=== PATIENT | female | born 1960 | race Hispanic/Latino ===

== ENCOUNTER 2017-06-03 18:29 | Observation (INO) | payer BC ==
[2017-06-03 18:36] VITALS: BP 120/71; PULSE 94; RESP 20; TEMP 97.6; O2SAT 98
[2017-06-03] MEDS ORDERED: Iohexol 240 (50 ml) PO ONE (18:59)
[2017-06-03] MEDS ORDERED: Sodium Chloride 0.9% 1,000 ML IV STA (19:02)
[2017-06-03] MEDS ORDERED: Iohexol 240 (50 ml) ONE (19:20)
--- NOTE | 2017-06-03 19:20 | ED PDOC ---
HPI: Abdomen Time Seen by Provider: 06/03/17 18:38 Chief Complaint (Nursing): GI Problem Chief Complaint (Provider): Abdominal Pain History Per: Patient History/Exam Limitations: no limitations Onset/Duration Of Symptoms: Hrs (3) Current Symptoms Are (Timing): Still Present Additional Complaint(s): Janet Jeffery is a 57 y/o female, with a past medical history of Gastrointestinal Ulcers and Asthma, presenting to the ER on 06/03/2017 with complaints of a sudden onset of abdominal pain onset 16:00. Patient reports the pain, which is constant, is localized in the epigastric region that radiates to her chest. She states her abdominal pain is associated with intractable vomiting , that is described as non-bloody and non-bilious, as well as four episodes of watery diarrhea that she notes as dark but not black. She further says her presentation is associated with chills, sweats, shortness of breath, and light- headedness, but denies any hematochezia, urinary symptoms, recent travel, sick contacts, or antibiotic usage. Patient says she ate frozen pizza for lunch. Patient has been taking Omeprazole for her Ulcers. Of note, patient is also complaining of right leg pain onset four days. She states the pain was initially sharp but has improved upon arrival. Past Medical History Reviewed: Historical Data, Nursing Documentation, Vital Signs Vital Signs: Last Vital Signs Temp 97.6 F 06/03/17 18:34 Pulse 94 H 06/03/17 18:34 Resp 20 06/03/17 18:34 BP 120/71 06/03/17 18:34 Pulse Ox 98 06/03/17 22:37 - Medical History PMH: Asthma, Gastrointestinal Ulcer - Surgical History Other surgeries: Tubal Ligation - Family History Family History: States: Unknown Family Hx - Social History Current smoker - smoking cessation education provided: Yes Alcohol: Occasional Drugs: Denies - Home Medications Home Medications: Ambulatory Orders Medication Instructions Recorded Dicyclomine [Bentyl] 20 mg PO BID PRN #30 tab 06/03/17 Lidocaine 5% [Lidoderm] 1 ea TD DAILY PRN #30 patch 06/03/17 Ondansetron ODT [Zofran ODT] 1 odt PO Q6 PRN #30 odt 06/03/17 - Allergies Allergies/Adverse Reactions: Allergies Allergy/AdvReac Type Severity Reaction Status Date / Time No Known Allergies Allergy Verified 06/03/17 18:33 Review of Systems ROS Statement: Except As Marked, All Systems Reviewed And Found Negative Constitutional: Positive for: Chills, Sweats Cardiovascular: Positive for: Light Headedness Respiratory: Positive for: Shortness of Breath Gastrointestinal: Positive for: Vomiting, Abdominal Pain, Diarrhea. Negative for: Hematochezia Genitourinary Female: Negative for: Dysuria, Frequency, Incontinence Physical Exam - Reviewed Nursing Documentation Reviewed: Yes Vital Signs Reviewed: Yes - Physical Exam Appears: Positive for: Uncomfortable, In Acute Distress Head Exam: Positive for: ATRAUMATIC, NORMOCEPHALIC Skin: Positive for: Warm, Diaphoresis Eye Exam: Positive for: Normal appearance, EOMI, PERRL ENT: Positive for: Normal ENT Inspection, Pharynx Is (clear), Other (tacky mucuous membranes ) Neck: Positive for: Normal, Painless ROM, Supple Cardiovascular/Chest: Positive for: Regular Rate, Rhythm, Chest Non Tender, Tachycardia (w/ regular rhythm ). Negative for: Murmur Respiratory: Positive for: Normal Breath Sounds. Negative for: Wheezing, Respiratory Distress Gastrointestinal/Abdominal: Positive for: Normal Exam, Tenderness ((+) epigastric ttp ), Other ((-) McBurney's Point tenderness; (-) Colunga's Sign ). Negative for: Mass, Distended Extremity: Positive for: Normal ROM, Calf Tenderness (pinpoint tenderness at proximal medial calf. no palpable mass or cord; (+) Khang's sign). Negative for : Deformity, Swelling Neurologic/Psych: Positive for: Alert, Oriented, Mood/Affect (anxious affect ). Negative for: Motor/Sensory Deficits - Laboratory Results Result Diagrams: 06/03/17 19:11 06/03/17 19:11 - ECG ECG Rhythm: Positive for: Normal QRS, Normal ST Segment, Sinus Rhythm (@ 96 bpm) . Negative for: ST/T Changes O2 Sat by Pulse Oximetry: 98 Medical Decision Making Medical Decision Makin:38 Initial Impression- Abdominal Pain, Vomiting, and Diarrhea. Differential diagnosis includes but not limited to gastroenteritis, PUD, pancreatitis, hepatitis, and SBO Initial Plan- * CT Abd Pelvis PO & IV * EKG * CMP * Lactic Acid * LDH * Lipase * Magnesium * Phosphorus * Troponin * Urine Dip * CBC w/ differential * D-Dimer * PT * PTT * Morphine 2 mg IVP * Zofran 8 mg IV * Protonix 40 mg IVP * Blood Cx Placed on Observation for time intensive workup and need for serial abdominal exams. 2130 Pt reports feeling better d/pw IVF, Zofran, Morphine, Protonix. 22:15 CT Abdomen and Pelvis FINDINGS: Limitations: Motion artifact - mild. Lower thorax: Minimal atelectasis/scarring. ABDOMEN: Liver: Fatty infiltration. Gallbladder and bile ducts: No calcified stones. No ductal dilation. Pancreas: No ductal dilation. No mass. Spleen: No splenomegaly. Adrenals: No mass. Kidneys and ureters: Few too small to characterize lesions within kidneys. No hydronephrosis. Stomach and bowel: Fluid within small bowel. Fluid/loose stool within large bowel. Scattered diverticula within colon. No associated inflammatory stranding. No definite mural thickening. No obstruction. Appendix: Normal caliber. No inflammation. PELVIS: Bladder: Unremarkable. Reproductive: Lobulation of uterus which fundal mass. ABDOMEN and PELVIS: Intraperitoneal space: No significant fluid collection. No free air. Bones/joints: Degenerative changes of spine. No acute fracture. Soft tissues: Unremarkable. Vasculature: Mild atherosclerotic disease. No aneurysm. Lymph nodes: No pathologically enlarged lymph nodes. IMPRESSION: 1. Fluid/loose stool within bowel may suggest diarrhea illness. 2. Probable fibroid uterus. 3. Incidental/non-acute findings are described above. 22:18 Pt was re-evaluated. Pt reports improved condition after tx, tolerated ice chips and PO contrast fluid. Abdomen benign. Discussed findings of CT scan and now will now attempt PO challenge of clear fluids. US Venous Doppler has been ordered. Next re-eval will be performed pending US. EXAM: US Duplex Right Lower Extremity Veins CLINICAL HISTORY: 57 years old, female; Pain; Leg, lower; Right; Additional info: Leg pain elevated ddimer TECHNIQUE: Real-time ultrasound scan of the veins of the right lower extremity with color Doppler flow, spectral waveform analysis and compression. COMPARISON: No relevant prior studies available. FINDINGS: Deep veins: Normal color and spectral Doppler flow. Normal compressibility. No deep vein thrombosis from common femoral to popliteal vein. Superficial veins: No thrombosis. Soft tissues: No popliteal cyst. IMPRESSION: 1. No evidence of DVT within RIGHT lower extremity. 2. Incidental/non-acute findings are described above. Thank you for allowing us to participate in the care of your patient. Dictated and Authenticated by: Wayne Harrington MD 06/03/2017 11:00 PM Eastern Time ([place] & [place]) 2300 Pt tolerated PO. Eager to go home. Stable for discharge. DW pt findings and plan of care. Documented by Gurvinder Nath, acting as a scribe for Whitney Tomlin MD. All medical record entries made by the Scribe were at my direction and personally dictated by me. I have reviewed the chart and agree that the record accurately reflects my personal performance of the history, physical exam, medical decision making, and the department course for this patient. I have also personally directed, reviewed, and agree with the discharge instructions and disposition. Disposition - Clinical Impression Clinical Impression: Gastroenteritis, Strain of calf muscle Counseled Patient/Family Regarding: Studies Performed, Diagnosis, Need For Followup, Rx Given - Disposition Disposition Time: 19:00 Condition: IMPROVED
[2017-06-03] MEDS ORDERED: Sterile Water 10 ML IV ONE (19:21)
[2017-06-03 19:28] LABS: BASO # 0.1 K/uL (0.0-0.2); BASO % 0.4 % (0.0-2.0); EOS # 0.1 K/uL (0.0-0.7); EOS % 0.5 % (0.0-4.0); HEMOGLOBIN 15.5 g/dL (12.0-16.0); LYMPH # 1.6 K/uL (1.0-4.3); MEAN CELL VOLUME 91.9 fl (81.0-99.0); MEAN CORPUSCULAR HGB CONC 32.7 g/dL (33.0-37.0); MEAN PLATELET VOLUME 8.2 fl (7.2-11.7); MONO # 0.6 K/uL (0.0-0.8); MONO % 4.5 % (0.0-10.0); NEUT # 11.2 K/uL (1.8-7.0); NEUT % 82.6 % (50.0-75.0); NRBC % 0.1 % (0.0-0.0); RBC 5.15 Mil/uL (3.80-5.20); RED CELL DISTRIBUTION WIDTH 14.7 % (11.5-14.5); WHITE BLOOD COUNT 13.5 K/uL (4.8-10.8)
[2017-06-03 19:30] LABS: ALB/GLOB RATIO 1.4 (1.0-2.1); ALBUMIN 4.8 g/dL (3.5-5.0); ALT/SGPT 34 U/L (9-52); AST/SGOT 33 U/L (14-36); BLOOD UREA NITROGEN 21 mg/dl (7-17); CALCIUM 10.2 mg/dL (8.4-10.2); GFR AFRICAN-AMERICAN > 60; GFR NON-AFRICAN AMERICAN 57; LIPASE 64 U/L (23-300); MAGNESIUM 1.8 MG/DL (1.6-2.3)
[2017-06-03 19:52] LABS: INR 1.1 (0.9-1.2); PARTIAL THROMBOPLASTIN TIME 32.2 Seconds (25.6-37.1); PROTHROMBIN TIME 11.7 Seconds (9.8-13.1)
[2017-06-03] MEDS ORDERED: Iohexol 300 100 ML IJ ONE (21:15)
[2017-06-03] MEDS ORDERED: Sodium Chloride 0.9% 50 ML IV ONE (21:16)
--- NOTE | 2017-06-03 22:11 | CT ---
EXAM: CT Abdomen and Pelvis With Intravenous Contrast CLINICAL HISTORY: 57 years old, female; Pain; Abdominal pain; Localized; Upper; Prior surgery; Surgery date: 6+ months; Surgery type: Tubal ligation; Patient HX: Asthma. Ulcers; Additional info: Abd pain. Most pain/ epigastric TECHNIQUE: Axial computed tomography images of the abdomen and pelvis with intravenous contrast. This CT exam was performed using one or more of the following dose reduction techniques: automated exposure control, adjustment of the mA and/or kV according to patient size, and/or use of iterative reconstruction technique. Coronal and sagittal reformatted images were created and reviewed. CONTRAST: 98 mL of omnipaque administered intravenously. COMPARISON: No relevant prior studies available. FINDINGS: Limitations: Motion artifact - mild. Lower thorax: Minimal atelectasis/scarring. ABDOMEN: Liver: Fatty infiltration. Gallbladder and bile ducts: No calcified stones. No ductal dilation. Pancreas: No ductal dilation. No mass. Spleen: No splenomegaly. Adrenals: No mass. Kidneys and ureters: Few too small to characterize lesions within kidneys. No hydronephrosis. Stomach and bowel: Fluid within small bowel. Fluid/loose stool within large bowel. Scattered diverticula within colon. No associated inflammatory stranding. No definite mural thickening. No obstruction. Appendix: Normal caliber. No inflammation. PELVIS: Bladder: Unremarkable. Reproductive: Lobulation of uterus which fundal mass. ABDOMEN and PELVIS: Intraperitoneal space: No significant fluid collection. No free air. Bones/joints: Degenerative changes of spine. No acute fracture. Soft tissues: Unremarkable. Vasculature: Mild atherosclerotic disease. No aneurysm. Lymph nodes: No pathologically enlarged lymph nodes. IMPRESSION: 1. Fluid/loose stool within bowel may suggest diarrhea illness. 2. Probable fibroid uterus. 3. Incidental/non-acute findings are described above.
--- NOTE | 2017-06-03 23:00 | US ---
EXAM: US Duplex Right Lower Extremity Veins CLINICAL HISTORY: 57 years old, female; Pain; Leg, lower; Right; Additional info: Leg pain elevated ddimer TECHNIQUE: Real-time ultrasound scan of the veins of the right lower extremity with color Doppler flow, spectral waveform analysis and compression. COMPARISON: No relevant prior studies available. FINDINGS: Deep veins: Normal color and spectral Doppler flow. Normal compressibility. No deep vein thrombosis from common femoral to popliteal vein. Superficial veins: No thrombosis. Soft tissues: No popliteal cyst. IMPRESSION: 1. No evidence of DVT within RIGHT lower extremity. 2. Incidental/non-acute findings are described above.
--- NOTE | 2017-06-04 13:00 | CARD ---
APPROVED REPORT EKG Measurement Heart [id number] <Conclusion> Normal sinus rhythm Normal ECG
== END 2017-06-03 23:19 | disposition home or self-care (01) ==
LOC: H.ER 18:29 → H.EROBSV 19:03
PROVIDERS: ADMIT Emergency Medicine; ATTEND Emergency Medicine
DX: K52.9 Noninfective gastroenteritis and colitis, unspecified (principal); D25.9 Leiomyoma of uterus, unspecified; F17.200 Nicotine dependence, unspecified, uncomplicated; J45.909 Unspecified asthma, uncomplicated; Z87.11 Personal history of peptic ulcer disease; S86.119A Strain of other muscle(s) and tendon(s) of posterior muscle group at lower leg level, unspecified leg, initial encounter; M79.604 Pain in right leg
CPT/HCPCS: 74177; 80053; 83605; 83615; 83690; 83735; 84100; 84484; 85025; 85378; 85610; 85730; 86850; 86900; 87040; 93005; 93971; 96374; 96375; 99284; C9113; G0378; J2270; J2405; J7040; Q9966; Q9967